=== PATIENT | female | born 1970 ===

== ENCOUNTER 2018-12-04 09:10 | Day surgery (SDC) | payer MEDICAID ==
[~2018-12-04 09:10] MED LIST: Buffered Lidocaine 1% SYRIN* 1 ML/SYRINGE INTRADERM ONE; Lactated Ringers 1000 ML Bag* 1,000 ML IV SCH
[2018-12-04] MEDS ORDERED: fentaNYL* 50 MCG/ML 2 ML VIAL (100 MCG VIAL) ONE ×2 (09:28)
[2018-12-04] MEDS ORDERED: Lidocaine 2% PF * 5 ML VIAL ONE ×2 (09:28→09:29)
[2018-12-04] MEDS ORDERED: Propofol* 10 MG/ML 20 ML BTL ONE ×2 (09:29)
[2018-12-04] MEDS ORDERED: ceFAZolin 2 GM PREMIX in ORs 2 GM/50 ML BAG IVPB ONE ×2 (09:35)
[2018-12-04] MEDS ORDERED: Bupivacaine 0.25% SDV PF* 10 ML VIAL INJ ONE ×2 (10:01)
[2018-12-04] MEDS ORDERED: Dexamethasone IV* 4 MG/ML 1 ML (4 MG) ONE ×2 (10:15)
[2018-12-04] MEDS ORDERED: Ondansetron INJ* 2 MG/ML VIAL ONE ×2 (10:38)
[2018-12-04] MEDS ORDERED: EPHEDrine (Pressors)* 50 MG/ML VIAL ONE ×2 (10:38)
[2018-12-04] MEDS ORDERED: Naloxone* 0.4 MG/ML 1 ML VIAL IV PRN (11:20)
[2018-12-04 11:48] VITALS: BP 135/86
--- NOTE | 2018-12-04 14:08 | OP ---
DATE OF OPERATION: 12/04/18 FOR[facility] DATE OF : 70 SURGEON: Rolly Matamoros MD TIME BROKER: ELDON Pinedo ANESTHESIOLOGIST: Dr. Palmer. ANESTHESIA: General. PRE-OP DIAGNOSIS: Left small finger proximal phalanx fracture. POST-OP DIAGNOSIS: Left small finger proximal phalanx fracture. OPERATIVE PROCEDURE: Closed reduction and percutaneous fixation of left small finger proximal phalanx fracture. INDICATIONS: Kaylan has a fifth proximal phalanx fracture with lot of apex palmar angulation. We talked about risks and benefits. She wanted to proceed. She does live in some sort of assisted living facility and I think she is little bit high risk for infection, so I told her that I bury the pins and in fact have to come back to get the pins removed. ESTIMATED BLOOD LOSS: 1 mL. COMPLICATIONS: None. FINDINGS: See above and below. DESCRIPTION OF PROCEDURE: Kaylan was seen in the preoperative holding area. The correct side, site and procedure were identified. We came back to the operating room, where the arm was prepped and draped in the usual fashion. We did prescrub it because it was a bit dirty. I went ahead and brought the mini C-arm in. When I closed reduced the fracture , I placed a 0.045 K-wire first from proximal radial going down to the subchondral bone distally and ulnarly and then a second pin was brought in from proximal ulnar exiting out the dorsal radial aspect of the distal fragment. The bone was in excellent alignment. I went ahead and clipped the pins below the skin. I performed a digital block with Marcaine before the procedure started. We went in and dressed the poke holes where the pins went in and placed an ulnar gutter splint. She was taken to the recovery room in stable condition. [id number]/[facility] #: [id number] [facility]
== END 2018-12-04 12:40 | disposition home or self-care (01) ==
LOC: OREAST 09:10
PROVIDERS: ATTEND Orthopaedic Surgery Hand Surgery
DX: S62.617A Displaced fracture of proximal phalanx of left little finger, initial encounter for closed fracture (principal); W19.XXXA Unspecified fall, initial encounter; Y92.9 Unspecified place or not applicable; Z72.0 Tobacco use; Z87.820 Personal history of traumatic brain injury; K21.9 Gastro-esophageal reflux disease without esophagitis
CPT/HCPCS: 76000; 81025; C1776; J0690; J1100; J2405; J2704; J3010; J3490

== ENCOUNTER 2019-01-12 08:20 | Day surgery (SDC) | payer MEDICAID ==
[2019-01-12] MEDS ORDERED: fentaNYL* 50 MCG/ML 2 ML VIAL (100 MCG VIAL) ONE ×2 (08:35)
[2019-01-12] MEDS ORDERED: Midazolam* 1 MG/ML 2 ML VIAL (2 MG) ONE ×2 (08:35)
[2019-01-12] MEDS ORDERED: Buffered Lidocaine 1% SYRIN* 1 ML/SYRINGE INTRADERM ONE ×2 (08:50)
[2019-01-12] MEDS ORDERED: Bupivacaine 0.25% SDV PF* 10 ML VIAL INJ ONE ×2 (09:14)
[2019-01-12] MEDS ORDERED: fentaNYL* 50 MCG/ML 2 ML VIAL (100 MCG VIAL) IV PRN (11:00)
[2019-01-12] MEDS ORDERED: oxyCODONE TAB* 5 MG TAB PO PRN (11:00)
[2019-01-12] MEDS ORDERED: DiMENhydriNATE IV* 50 MG/ML VIAL IV PUSH PRN (11:00)
[2019-01-12] MEDS ORDERED: Naloxone* 0.4 MG/ML 1 ML VIAL IV PRN (11:00)
[2019-01-12] MEDS ORDERED: Acetaminophen TAB* 325 MG PO PRN (11:00)
[2019-01-12] MEDS ORDERED: Ketorolac INJ* 30 MG/ML 1 ML VIAL ONE ×2 (11:01)
[2019-01-12] MEDS ORDERED: Metoclopramide IV* 5 MG/ML 2 ML VIAL ONE ×2 (11:01)
[2019-01-12] MEDS ORDERED: Ondansetron INJ* 2 MG/ML VIAL ONE ×2 (11:01)
[2019-01-12] MEDS ORDERED: Dexamethasone IV* 4 MG/ML 1 ML (4 MG) ONE ×2 (11:01)
--- NOTE | 2019-01-12 12:41 | OP ---
DATE OF OPERATION: 01/12/19 - [facility] DATE OF : 70 SURGEON: Rolly Matamoros MD CENTRAL OFFICE FRAME WIRER: None. ANESTHESIOLOGIST: Dr. Logan. ANESTHESIA: General. PRE-OP DIAGNOSIS: Buried wires, left hand and small finger. POST-OP DIAGNOSIS: Buried wires, left hand and small finger. OPERATIVE PROCEDURE: Removal of deep buried wires, left hand. INDICATIONS: Kaylan had pinning done, the wires are very deep, the ulnar wires was very deep against the ulnar collateral ligament, the radial wires deep down in the webspace. We talked about treatment options and she elected to undergo removal of the wires in the operating room. ESTIMATED BLOOD LOSS: 2 mL. COMPLICATIONS: None. FINDINGS: See above and below. DESCRIPTION OF PROCEDURE: Kaylan was seen in the preoperative holding area. The correct site, side, and procedure were identified. We came back to the operating room where the arm was scrubbed and prepped and draped in the usual fashion. A time-out was performed. A sterile forearm tourniquet was placed. The arm was exsanguinated and the tourniquet inflated to 200 mmHg. I first made a 1 cm incision over the dorsal ulnar hand between the fourth and fifth metacarpal necks. Dissection was carried down. There was a very prominent juncture that I had to retract out of the way with a Ragnell retractor. Once I had mobilized that and retracted out of the way, I was able to gain access to the pin. I flexed the MCP joint and estimated the pin little bit more prominent. I released the soft tissue right around the pin and then used a heavy needle non cdl driver to remove the pin. After this was done, I was able to irrigate out the wound. I just went ahead and let the juncture fall back into place. The skin was closed with 4-0 nylon suture. I next flexed the fifth MCP joint down and held it in maximal flexion. I made a three-quarters to 1 cm incision over the area of the pin. I was able to spread down with the tenotomy scissors and free up the soft tissue from around the pin. I was able to push my heavy needle non cdl driver in and get a hold into the wire and then removed the wire uneventfully. Once that pin was out, I irrigated out the wound. The skin was closed with 4-0 nylon suture, placed some 0.25% Marcaine around all of the operative area. Wounds were dressed with Xeroform, 4x4s, sterile Webril and 2-inch AYE wrap was placed. Tourniquet was deflated. She was taken to the recovery room in stable condition. [id number]/[facility] #: [id number] SUZANNA
[2019-01-12 13:21] VITALS: BP 123/79
== END 2019-01-12 13:23 | disposition home or self-care (01) ==
LOC: OR 08:20
PROVIDERS: ATTEND Orthopaedic Surgery Hand Surgery
DX: S62.617D Displaced fracture of proximal phalanx of left little finger, subsequent encounter for fracture with routine healing (principal); Z72.0 Tobacco use; Z87.820 Personal history of traumatic brain injury; G81.10 Spastic hemiplegia affecting unspecified side; X58.XXXD Exposure to other specified factors, subsequent encounter; Y92.9 Unspecified place or not applicable
CPT/HCPCS: 81025; 88300; J1100; J1885; J2250; J2405; J2765; J3010; J3490